=== PATIENT | female | born 1980 | race Caucasian/White ===

== ENCOUNTER 2016-06-01 13:18 | Emergency (ER) | payer OTHER ==
[2016-06-01 14:01] VITALS: BP 152/98
--- NOTE | 2016-06-01 14:22 | UC ---
Abdominal Pain Female HPI - HPI Summary HPI Summary: complaint of RUQ pain that radiates to her back pain woke her up from sleep this morning stabbing ,throbbing constant pain that radiates into her back nausea and vomiting since she woke this morning denies fever but has felt chills this morning denies diarrhea but has lots of flatulence- last BM yesterday normal no blood in stool denies dysuria LMP approx 05/01/16 hx of intermittent RUQ pain for the last 10 years- see GI at [facility] hasn't taken any medication - History of Current Complaint Chief Complaint: UCGI Stated Complaint: VOMITING ABD PAIN Time Seen by Provider: 06/01/16 14:16 Hx Obtained From: Patient Hx Last Menstrual Period: 05/01/16 Radiates to: Flank Character: Sharp, Tearing Aggravating Factor(s): Food Alleviating Factor(s): Nothing Associated Signs and Symptoms: Positive: Nausea, Vomiting Allergies/Adverse Reactions: Allergies Allergy/AdvReac Type Severity Reaction Status Date / Time Latex Allergy Mild SENSITIVITY Verified 06/01/16 14:01 WITH CONDOMN Allopurinol Allergy Shortness Verified 06/01/16 14:01 of Breath Home Medications: Home Medications Fenofibrate 06/01/16 [History] Progesterone Micronized [Prometrium] 1 PO SEE INSTRUCTIONS 06/01/16 [History] metFORMIN* [Glucophage 1000 MG TAB *] 1 PO DAILY 06/01/16 [History] PMH/Surg Hx/FS Hx/Imm Hx Previously Healthy: Yes Endocrine History Of: Denies: Diabetes, Thyroid Disease Cardiovascular History Of: Denies: Cardiac Disorders, Hypertension, Pacemaker/ICD Respiratory History Of: Denies: COPD, Asthma GI/ History Of: Denies: Ulcer Psychological History Of: Reports: Anxiety - Surgical History Surgical History: Yes Surgery Procedure, Year, and Place: Tubes in ear as a child. TUBAL LIGATION - Family History Known Family History: Positive: Diabetes Family History: No FHx of malignant hypothermia - Social History Occupation: Employed Full-time Lives: With Family Alcohol Use: Occasionally Alcohol Amount: 2 PER WEEK Substance Use Type: Marijuana Substance Use Comment - Amount & Last Used: OCCASIONALLY - LAST TIME ABOUT 2 WEEKS AGO Smoking Status (MU): Former Smoker Amount Used/How Often: LESS THAN 5 CIGARETTES PER DAY Have You Smoked in the Last Year: Yes When Did the Patient Quit Smoking/Using Tobacco: 01/2015 Household Exposure Type: Cigarettes - Immunization History Most Recent Influenza Vaccination: declined 11/14 Most Recent Tetanus Shot: unknown Most Recent Pneumonia Vaccination: unknown Review of Systems Constitutional: Negative Skin: Negative Eyes: Negative ENT: Negative Respiratory: Negative Cardiovascular: Negative Gastrointestinal: Vomiting Genitourinary: Negative Motor: Negative Neurovascular: Negative Musculoskeletal: Negative Neurological: Negative Psychological: Negative All Other Systems Reviewed And Are Negative: Yes Physical Exam Triage Information Reviewed: Yes Appearance: Well-Nourished, Pain Distress, Obese Vital Signs: Initial Vital Signs Temp 97.6 F 06/01/16 13:54 Pulse 78 06/01/16 13:54 Resp 18 06/01/16 13:54 BP 152/98 06/01/16 13:54 Pulse Ox 100 06/01/16 13:54 Vital Signs Reviewed: Yes Eyes: Positive: Conjunctiva Clear ENT: Positive: Pharynx normal, TMs normal Neck: Positive: No Lymphadenopathy Respiratory: Positive: Lungs clear, Normal breath sounds, No respiratory distress Cardiovascular: Positive: RRR, No Murmur, Pulses Normal Abdomen Description: Positive: No Organomegaly, Soft, Distended, Other: - RUQ tenderness. Negative: CVA Tenderness (R), CVA Tenderness (L), Guarding Bowel Sounds: Positive: Present Musculoskeletal: Positive: No Edema Neurological: Positive: Alert Psychological Exam: Normal Skin Exam: Normal Abd Pain Female Course/Dx - Course Course Of Treatment: exam completed. d/t RUQ tenderness ot needs ultrasound - will transfer to higher level of for further evaluation - Differential Dx/Diagnosis Differential Diagnosis: Gall Bladder Disease, Peptic Ulcer Disease Provider Diagnoses: RUQ pain - Physician Notification/Consults Discussed Patient Care With: Dr Love Time Discussed With Above Provider: 14:36 Discharge - Discharge Plan Condition: Stable Disposition: [facility] Referrals: Nohemi Mccartney PA [Primary Care Provider] -
== END 2016-06-01 14:44 | disposition short-term general hospital (02) ==
LOC: UCEAST 13:18
DX: R10.11 Right upper quadrant pain (principal); R11.2 Nausea with vomiting, unspecified; F41.9 Anxiety disorder, unspecified; E66.9 Obesity, unspecified
CPT/HCPCS: 99212; G0463

== ENCOUNTER 2016-06-01 15:02 | Emergency (ER) | payer OTHER ==
[2016-06-01] MEDS ORDERED: Ondansetron INJ* 2 MG/ML VIAL IV ONE ×2 (15:53→18:44)
[2016-06-01] MEDS ORDERED: Pantoprazole IV* 40 MG IV ONE (15:53)
[2016-06-01] MEDS ORDERED: Morphine INJ* 4 MG/ML 1 ML SYRINGE IV ONE (15:53)
[2016-06-01] MEDS: NS 0.9% 1000 ML* 2,000 ML IV ONE (16:21)
[2016-06-01 16:49] LABS: Hematocrit 44 % (35-47); Hemoglobin 14.6 g/dl (12.0-16.0); Mean Corpuscular HGB Conc 33 g/dl (31-36); Mean Corpuscular Hemoglobin 27 pg (27-31); Mean Corpuscular Volume 82 fL (80-97); Mean Platelet Volume 8 um3 (7.4-10.4); Red Blood Count 5.33 10^6/ul (4.0-5.4); Red Cell Distribution Width 15 % (10.5-15); White Blood Count 10.4 10^3/ul (3.5-10.8)
--- NOTE | 2016-06-01 16:57 | RAD ---
INDICATION: Right upper quadrant pain. COMPARISON: Comparison is made with a prior CT of the abdomen and pelvis from April 02, 2010 and a prior right upper quadrant ultrasound from November 12, 2015. TECHNIQUE: Multiple real-time images of the right upper quadrant were obtained. FINDINGS: The gallbladder appear normal. No gallbladder wall thickening or pericholecystic fluid is present. No intra or extrahepatic ductal distention is present. The common bile duct measured 0.4 cm in diameter. The liver is mildly enlarged and increased in echogenicity consistent with fatty infiltration and similar to the prior studies. The pancreas is partially obscured by overlying bowel gas. The right kidney is normal in size without evidence for hydronephrosis. IMPRESSION: 1. NORMAL EXAMINATION OF THE GALLBLADDER. 2. MILD HEPATOMEGALY AND RELATIVELY SEVERE HEPATIC STEATOSIS.
[2016-06-01 17:04] LABS: ALT 31 U/L (7-52); AST 22 U/L (13-39); Albumin 4.4 g/dL (3.2-5.2); Alkaline Phosphatase 59 U/L (34-104); Anion Gap 8 mmol/L (2-11); BUN/Creatinine Ratio 15.5 (8-20); Blood Urea Nitrogen 11 mg/dL (6-24); C Reactive Protein 16.81 mg/L (< 5.00); CO2 Carbon Dioxide 26 mmol/L (22-32); Calcium 9.4 mg/dL (8.6-10.3); Chloride 106 mmol/L (101-111); EGFR African American 121.9 (>60); EGFR Non-African American 94.8 (>60); Globulin 3.5 g/dL (2-4); Glucose 110 mg/dL (70-100); Lipase < 10 U/L (11.0-82.0); Potassium 3.8 mmol/L (3.5-5.0); Sodium 140 mmol/L (133-145); Total Protein 7.9 g/dL (6.4-8.9)
--- NOTE | 2016-06-01 18:47 | ED ---
Sonido Moore Billy, scribed for Kendell Penaloza MD on 06/01/16 at 1549 . Abdominal Pain/Female - HPI Summary HPI Summary: Patient is a 35 year-old female coming to [facility] for evaluation of RUQ pain. Patient states that her pain has been a chronic issue. She has visited gastroenterologists in the past, and specialists have been unable to determine the etiology of her pain. This morning, she had multiple episodes of nausea and vomiting. She states that her pain radiates to the epigastrium and to the right flank. She also reports chills. She still has her gallbladder. - History of Current Complaint Chief Complaint: EDAbdPain Stated Complaint: ABD PAIN COMMING FROM [facility] Time Seen by Provider: 06/01/16 15:32 Hx Obtained From: Patient Hx Last Menstrual Period: 05/01/16 Onset/Duration: Gradual Onset, Lasting Hours, Still Present Timing: Constant Severity Initially: Moderate Severity Currently: Moderate Pain Intensity: 8 Pain Scale Used: 0-10 Numeric Location: Discrete At: RUQ Radiates: Yes Radiates to: Flank, Other - epigastrium Aggravating Factor(s): Nothing Alleviating Factor(s): Nothing Associated Signs and Symptoms: Positive: Nausea, Vomiting, Other: - chills Allergies/Adverse Reactions: Allergies Allergy/AdvReac Type Severity Reaction Status Date / Time Latex Allergy Mild SENSITIVITY Verified 06/01/16 14:01 WITH CONDOMN Allopurinol Allergy Shortness Verified 06/01/16 14:01 of Breath PMH/Surg Hx/FS Hx/Imm Hx Endocrine/Hematology History: Denies: Hx Diabetes, Hx Thyroid Disease Cardiovascular History: Reports: Other Cardiovascular Problems/Disorders - ANKLES SWELL IN HOT WEATHER Denies: Hx Hypertension, Hx Pacemaker/ICD Respiratory History: Denies: Hx Asthma, Hx Chronic Obstructive Pulmonary Disease (COPD) GI History: Reports: Hx Gastroesophageal Reflux Disease - CONTROL WITH MEDS Denies: Hx Ulcer Sensory History: Denies: Hx Contacts or Glasses, Hx Hearing Aid Opthamlomology History: Denies: Hx Contacts or Glasses Psychiatric History: Reports: Hx Anxiety Denies: Hx Panic Disorder - Surgical History Surgery Procedure, Year, and Place: Tubes in ear as a child. TUBAL LIGATION Hx Anesthesia Reactions: No Infectious Disease History: No Infectious Disease History: Denies: Hx Hepatitis, Hx Human Immunodeficiency Virus (HIV), Traveled Outside the [place] in Last 30 Days - Family History Known Family History: Positive: Diabetes Family History: No FHx of malignant hypothermia - Social History Alcohol Use: Occasionally Alcohol Amount: 2 PER WEEK Substance Use Type: Reports: Marijuana Substance Use Comment - Amount & Last Used: OCCASIONALLY - LAST TIME ABOUT 2 WEEKS AGO Smoking Status (MU): Former Smoker Amount Used/How Often: LESS THAN 5 CIGARETTES PER DAY Have You Smoked in the Last Year: Yes Review of Systems Positive: Chills Positive: Abdominal Pain, Vomiting, Nausea All Other Systems Reviewed And Are Negative: Yes Physical Exam Triage Information Reviewed: Yes Vital Signs On Initial Exam: Initial Vitals Temp Pulse Resp BP Pulse Ox 96.7 F 87 16 154/83 99 06/01/16 15:09 06/01/16 15:09 06/01/16 15:09 06/01/16 15:09 06/01/16 15:09 Vital Signs Reviewed: Yes Appearance: Positive: Well-Appearing, Pain Distress - mild Skin: Positive: Warm, Skin Color Reflects Adequate Perfusion, Dry Head/Face: Positive: Normal Head/Face Inspection Eyes: Positive: EOMI, YANE ENT: Positive: Normal ENT inspection Neck: Positive: Supple, Nontender Respiratory/Lung Sounds: Positive: Clear to Auscultation, Breath Sounds Present Cardiovascular: Positive: RRR Abdomen Description: Positive: Soft, Other: - Tender RUQ. Bowel Sounds: Positive: Hypoactive Musculoskeletal: Positive: Normal, Strength/ROM Intact Neurological: Positive: Normal, Sensory/Motor Intact, Alert, Oriented to Person Place, Time Psychiatric: Positive: Affect/Mood Appropriate - Rubi Coma Scale Coma Scale Total: 15 Diagnostics - Vital Signs Vital Signs Temp Pulse Resp BP Pulse Ox 06/01/16 15:09 96.7 F 87 16 154/83 99 - Laboratory Lab Results: Lab Results 06/01/16 06/01/16 06/01/16 Range/Units 16:10 16:10 16:10 WBC 10.4 (3.5-10.8) 10^3/ul RBC 5.33 (4.0-5.4) 10^6/ul Hgb 14.6 (12.0-16.0) g/dl Hct 44 (35-47) % MCV 82 (80-97) fL MCH 27 (27-31) pg MCHC 33 (31-36) g/dl RDW 15 (10.5-15) % Plt Count 355 (150-450) 10^3/ul MPV 8 (7.4-10.4) um3 Neut % (Auto) 82.1 (38-83) % Lymph % (Auto) 14.3 L (25-47) % [place] % (Auto) 3.1 (1-9) % Eos % (Auto) 0.1 (0-6) % Baso % (Auto) 0.4 (0-2) % Absolute Neuts (auto) 8.5 H (1.5-7.7) 10^3/ul Absolute Lymphs (auto) 1.5 (1.0-4.8) 10^3/ul Absolute Monos (auto) 0.3 (0-0.8) 10^3/ul Absolute Eos (auto) 0 (0-0.6) 10^3/ul Absolute Basos (auto) 0 (0-0.2) 10^3/ul Absolute Nucleated RBC 0.01 10^3/ul Nucleated RBC % 0.1 Sodium 140 (133-145) mmol/L Potassium 3.8 (3.5-5.0) mmol/L Chloride 106 (101-111) mmol/L Carbon Dioxide 26 (22-32) mmol/L Anion Gap 8 (2-11) mmol/L BUN 11 (6-24) mg/dL Creatinine 0.71 (0.51-0.95) mg/dL Est GFR ( Amer) 121.9 (>60) Est GFR (Non-Af Amer) 94.8 (>60) BUN/Creatinine Ratio 15.5 (8-20) Glucose 110 H (70-100) mg/dL Lactic Acid 1.9 (0.5-2.0) mmol/L Calcium 9.4 (8.6-10.3) mg/dL Total Bilirubin 0.70 (0.2-1.0) mg/dL AST 22 (13-39) U/L ALT 31 (7-52) U/L Alkaline Phosphatase 59 (34-104) U/L C-Reactive Protein 16.81 H (< 5.00) mg/L Total Protein 7.9 (6.4-8.9) g/dL Albumin 4.4 (3.2-5.2) g/dL Globulin 3.5 (2-4) g/dL Albumin/Globulin Ratio 1.3 (1-3) Lipase < 10 L (11.0-82.0) U/L Beta HCG, Quant < 0.60 mIU/mL Result Diagrams: 06/01/16 16:10 06/01/16 16:10 Lab Statement: Any lab studies that have been ordered have been reviewed, and results considered in the medical decision making process. - Ultrasound No standard instances Ultrasound Interpretation Completed By: Radiologist - GALLBLADDER ULTRASOUND: 1. NORMAL EXAMINATION OF THE GALLBLADDER. 2. MILD HEPATOMEGALY AND RELATIVELY SEVERE HEPATIC STEATOSIS. Abdominal Pain Fem Course/Dx - Course Course Of Treatment: NO CRITICAL CARE TIME. PATIENT IMPROVED IN ED. DISCUSSED RESULTS WITH PATIENT. DISCHARGE HOME STABLE. - Diagnoses Provider Diagnoses: Abdominal pain, Vomiting Discharge - Discharge Plan Condition: Stable Disposition: HOME Prescriptions: Ondansetron ODT TAB* [Zofran 4 MG Odt TAB*] 4 mg PO Q6H PRN #10 tab.odt PRN Reason: Nausea Patient Education Materials: Abdominal Pain (ED), Acute Nausea and Vomiting (ED ) Referrals: Nohemi Mccartney PA [Primary Care Provider] - Additional Instructions: FOLLOW UP WITH YOUR DOCTOR. RETURN TO THE EMERGENCY DEPARTMENT FOR ANY WORSENING OF YOUR CONDITION; PAIN, FEVER, VOMITING OR QUESTIONS OR CONCERNS. The documentation as recorded by the Sonido espinosa Billy accurately reflects the service I personally performed and the decisions made by me, Kendell Penaloza MD.
[2016-06-01] MEDS ORDERED: Ondansetron ODT TAB* 4 MG PO ONE (18:48)
[2016-06-01 18:50] LABS: Urine Bacteria Absent (Absent); Urine Bilirubin Negative (Negative); Urine Glucose Negative (Negative); Urine Nitrite Negative (Negative)
[2016-06-01 19:15] VITALS: BP 133/68
== END 2016-06-01 19:14 | disposition home or self-care (01) ==
LOC: ED 15:02
DX: R10.11 Right upper quadrant pain (principal); R11.2 Nausea with vomiting, unspecified; Z87.891 Personal history of nicotine dependence; R68.83 Chills (without fever)
CPT/HCPCS: 36415; 76705; 80053; 81003; 81015; 83605; 83690; 84702; 85025; 86140; 96374; 96375; 99284; J2270; J2405